=== PATIENT | male | born 1955 | race American Indian/Alaskan Native ===

== ENCOUNTER 2017-08-29 09:21 | Inpatient (IN) | payer MEDICAID ==
[2017-08-29 09:33] VITALS: BMI 32.3
[2017-08-29 10:36] LABS: BASO % 0.6 % (0.0-2.0); EOS # 0.2 K/uL (0.0-0.7); EOS % 2.5 % (0.0-4.0); HEMOGLOBIN 12.8 g/dL (12.0-18.0); LYMPH # 2.4 K/uL (1.0-4.3); LYMPH % 29.9 % (20.0-40.0); MEAN CELL VOLUME 84.6 fl (80.0-94.0); MEAN CORPUSCULAR HEMOGLOBIN 28.5 pg (27.0-31.0); MEAN CORPUSCULAR HGB CONC 33.7 g/dL (33.0-37.0); MEAN PLATELET VOLUME 7.3 fl (7.2-11.7); MONO # 0.7 K/uL (0.0-0.8); NEUT # 4.6 K/uL (1.8-7.0); NRBC % 0.4 % (0.0-0.0); RBC 4.48 Mil/uL (4.40-5.90); RED CELL DISTRIBUTION WIDTH 15.6 % (11.5-14.5); WHITE BLOOD COUNT 7.9 K/uL (4.8-10.8)
[2017-08-29 10:39] LABS: PARTIAL THROMBOPLASTIN TIME 30.3 Seconds (25.6-37.1); PROTHROMBIN TIME 11.6 Seconds (9.8-13.1)
[2017-08-29 10:41] LABS: BLOOD UREA NITROGEN 18 mg/dl (9-20); CALCIUM 9.7 mg/dL (8.4-10.2); GFR AFRICAN-AMERICAN > 60; GFR NON-AFRICAN AMERICAN > 60
--- NOTE | 2017-08-29 10:44 | ED PDOC ---
HPI: Back Time Seen by Provider: 08/29/17 09:40 Chief Complaint (Nursing): Back Pain Chief Complaint (Provider): Back Pain History Per: Patient History/Exam Limitations: no limitations Onset/Duration Of Symptoms: Other (Chronic) Additional Complaint(s): 62 years old male presents to the ED with chronic lower back pain that has been recently worsening with walking. Patient states he has been limping and the pain radiates to his right leg. He admits episodes of numbness and weakness. Patient reports taking Ibuprofen with no improvement of symptoms. He denies numbness in groin, weakness, fever or difficulty of urination. PMD:Tejinder Puckett Past Medical History Reviewed: Historical Data, Nursing Documentation, Vital Signs Vital Signs: Last Vital Signs Temp 98.2 F 08/29/17 09:32 Pulse 79 08/29/17 09:32 Resp 16 08/29/17 09:32 BP 146/100 H 08/29/17 09:32 Pulse Ox 96 08/29/17 09:32 - Medical History PMH: Arthritis, Back Problems, HTN - Surgical History Surgical History: No Surg Hx Denies: Pacemaker - Family History Family History: States: Unknown Family Hx - Social History Current smoker - smoking cessation education provided: Yes Alcohol: None Drugs: Denies - Home Medications Home Medications: Ambulatory Orders Medication Instructions Recorded Valsartan [Diovan] 160 mg PO DAILY 02/14/17 hydroCHLOROthiazide [Microzide] 12.5 mg PO DAILY 02/14/17 - Allergies Allergies/Adverse Reactions: Allergies Allergy/AdvReac Type Severity Reaction Status Date / Time No Known Allergies Allergy Verified 06/25/12 15:19 Review of Systems ROS Statement: Except As Marked, All Systems Reviewed And Found Negative Constitutional: Negative for: Fever Musculoskeletal: Positive for: Back Pain (lower), Leg Pain (right) Neurological: Negative for: Weakness, Numbness (in groin) Physical Exam - Reviewed Nursing Documentation Reviewed: Yes Vital Signs Reviewed: Yes - Physical Exam Appears: Positive for: Non-toxic, No Acute Distress Head Exam: Positive for: ATRAUMATIC, NORMOCEPHALIC Skin: Positive for: Normal Color, Warm Eye Exam: Positive for: Normal appearance, EOMI, PERRL ENT: Positive for: Normal ENT Inspection Neck: Positive for: Normal, Supple Cardiovascular/Chest: Positive for: Regular Rate, Rhythm. Negative for: Murmur Respiratory: Positive for: Normal Breath Sounds. Negative for: Respiratory Distress Gastrointestinal/Abdominal: Positive for: Normal Exam, Soft. Negative for: Tenderness Back: Positive for: Other (mild tenderness of right lower back) Extremity: Positive for: Normal ROM (upper and lower). Negative for: Tenderness , Swelling Neurologic/Psych: Positive for: Alert, Oriented. Negative for: Motor/Sensory Deficits - Laboratory Results Result Diagrams: 08/29/17 10:10 08/29/17 10:10 - ECG O2 Sat by Pulse Oximetry: 96 (RA) Pulse Ox Interpretation: Normal Medical Decision Making Medical Decision Making: Time: 1025 Initial Impression: Chronic back pain with exacerbation. Initial Plan: --BBK Type and Screen --EKG --BMP --CBC --PTT --Prothrombin Time --Chest X-Ray Two Views --Urinalysis According to patient, he had an MRI before and was seen by Dr. Lopez, who recommended patient to have a surgery. Dr. Lopez will be on consultation _ Time: 1055 Chest X-Ray FINDINGS: LUNGS: No active pulmonary disease. PLEURA: No significant pleural effusion identified. No pneumothorax apparent. CARDIOVASCULAR: No radiographic findings to suggest acute or significant cardiovascular disease. OSSEOUS STRUCTURES: No significant abnormalities. Findings related to prior ACDF a new finding compared to previous chest x-ray. VISUALIZED UPPER ABDOMEN: Normal. OTHER FINDINGS: None. IMPRESSION: No active disease. No significant interval change compared to the prior examination(s). Scribe Attestation: Documented by Crista Guzmán, acting as a scribe for Laurent Feng MD. Provider Scribe Attestation: All medical record entries made by the Scribe were at my direction and personally dictated by me. I have reviewed the chart and agree that the record accurately reflects my personal performance of the history, physical exam, medical decision making, and the department course for this patient. I have also personally directed, reviewed, and agree with the discharge instructions and disposition. Disposition - Clinical Impression Clinical Impression: Chronic back pain - Patient ED Disposition Is Patient to be Admitted: Yes Discussed With : Tejinder Puckett Doctor Will See Patient In The: Hospital Counseled Patient/Family Regarding: Studies Performed, Diagnosis - Disposition Disposition Time: 10:00 Condition: FAIR - Pt Status Changed To: Hospital Disposition Of: Inpatient - Admit Certification Admit to Inpatient:: After my assessment, the patient will require hospitalization for at least two midnights. This is because of the severity of symptoms shown, intensity of services needed, and/or the medical risk in this patient being treated as an outpatient. - POA Present On Arrival: None
[2017-08-29 10:53] LABS: SQUAMOUS EPITHIAL < 1 /hpf (0-5); URINE BILIRUBIN NEGATIVE (NEGATIVE); URINE BLOOD NEGATIVE (NEGATIVE); URINE CLARITY SLIGHTY-CLOUDY (Clear); URINE COLOR YELLOW (YELLOW); URINE GLUCOSE (UA) NEG (Normal); URINE LEUKOCYTE ESTERASE NEG Leu/uL (Negative); URINE PROTEIN NEGATIVE (NEGATIVE); URINE UROBILINOGEN 0.2-1.0 mg/dL (0.2-1.0)
--- NOTE | 2017-08-29 10:57 | RAD ---
HISTORY: preop COMPARISON: 02/14/2017 TECHNIQUE: Chest PA and lateral FINDINGS: LUNGS: No active pulmonary disease. PLEURA: No significant pleural effusion identified. No pneumothorax apparent. CARDIOVASCULAR: No radiographic findings to suggest acute or significant cardiovascular disease. OSSEOUS STRUCTURES: No significant abnormalities. Findings related to prior ACDF a new finding compared to previous chest x-ray. VISUALIZED UPPER ABDOMEN: Normal. OTHER FINDINGS: None. IMPRESSION: No active disease. No significant interval change compared to the prior examination(s).
--- NOTE | 2017-08-29 12:36 | CP.PCM.HP ---
<Umesh Antunez - Last Filed: 08/29/17 12:30> History of Present Illness - History of Present Illness History of Present Illness: CC: low back pain HPI: 62 y/o man w/ pmh of HTN, prostate cancer, and osteoarthritis complains of worsening lower back pain. Patient reports back pain for many years. Patient reports his back pain has been worsening. Patient denies saddle paresthesia, bowel/urinary incontinence, or lower extremity weakness. Patient reports failure of outpatient conservative management of medication and physical therapy. Patient denies headaches, chest pain, SOB, abdominal pain, nausea, vomiting, diarrhea, dysuria, or fever. PMD: Dr. Puckett PMH: HTN, Prostate cancer, osteoarthritis meds: see med list Allergies: NKDA PSH: Anterior Cervical Discectomy and Fusion C4-C5, C5-C6 02/2017, cath no stents >5 yrs ago Fam: HTN and cancer in family Soc: Smokes 1/2 pack a day for over 25 years, denies alcohol and drugs ROS: 12 points assessed and negative unless otherwise reported in HPI Present on Admission - Present on Admission Any Indicators Present on Admission: No History of DVT/PE: No History of Uncontrolled Diabetes: No Urinary Catheter: No Decubitus Ulcer Present: No Review of Systems - Review of Systems All systems: reviewed and no additional remarkable complaints except - Constitutional Constitutional: absent: Chills, Fever, Headache - EENT Eyes: absent: Change in Vision - Cardiovascular Cardiovascular: absent: Chest Pain - Respiratory Respiratory: absent: Dyspnea - Gastrointestinal Gastrointestinal: absent: Abdominal Pain, Diarrhea, Nausea, Vomiting - Genitourinary Genitourinary: absent: Dysuria - Integumentary Integumentary: absent: Rash - Neurological Neurological: absent: Headaches Past Patient History - Past Social History Alcohol: None Drugs: Denies - CARDIAC Hx Hypertension: Yes Hx Pacemaker: No - NEUROLOGICAL Hx Neurological Disorder: Yes Hx Paralysis: No Other/Comment: back pain; neck pain with hand tingling and numbness - HEENT Hx HEENT Problems: Yes - HEMATOLOGICAL/ONCOLOGICAL Hx Blood Transfusions: No Hx Blood Transfusion Reaction: No - MUSCULOSKELETAL/RHEUMATOLOGICAL Hx Arthritis: Yes - GENITOURINARY/GYNECOLOGICAL Hx Genitourinary Disorders: Yes Hx Prostate Cancer: Yes Hx Urinary Tract Infection: Yes (from radiation) - PSYCHIATRIC Hx Emotional Abuse: No Hx Physical Abuse: No Hx Substance Use: No - SURGICAL HISTORY Hx Surgeries: Yes Other/Comment: Varicose vein from legs. Cardiac cath - ANESTHESIA Hx Anesthesia: Yes Hx Anesthesia Reactions: No Hx Malignant Hyperthermia: No Meds Allergies/Adverse Reactions: Allergies Allergy/AdvReac Type Severity Reaction Status Date / Time No Known Allergies Allergy Verified 06/25/12 15:19 Physical Exam - Constitutional Appears: Non-toxic, No Acute Distress - Head Exam Head Exam: ATRAUMATIC, NORMAL INSPECTION, NORMOCEPHALIC - Eye Exam Eye Exam: Normal appearance - ENT Exam ENT Exam: Mucous Membranes Moist - Neck Exam Neck exam: Positive for: Full Rom. Negative for: Tenderness - Respiratory Exam Respiratory Exam: Clear to Auscultation Bilateral. absent: Accessory Muscle Use , Decreased Breath Sounds, Rales, Rhonchi, Wheezes, Respiratory Distress - Cardiovascular Exam Cardiovascular Exam: REGULAR RHYTHM. absent: Tachycardia - GI/Abdominal Exam GI & Abdominal Exam: Normal Bowel Sounds, Soft. absent: Distended, Tenderness - Extremities Exam Extremities exam: Negative for: calf tenderness, pedal edema, tenderness - Neurological Exam Neurological exam: Alert, Normal Gait (w/ can assist device), Oriented x3 Results - Vital Signs Recent Vital Signs: Last Vital Signs Temp 98.2 F 08/29/17 09:32 Pulse 79 08/29/17 09:32 Resp 16 08/29/17 09:32 BP 146/100 H 08/29/17 09:32 Pulse Ox 96 08/29/17 12:20 - Labs Result Diagrams: 08/29/17 10:10 08/29/17 10:10 Labs: Laboratory Results - last 24 hr 08/29/17 08/29/17 08/29/17 10:10 10:10 10:10 WBC 7.9 RBC 4.48 Hgb 12.8 Hct 38.0 MCV 84.6 MCH 28.5 MCHC 33.7 RDW 15.6 H Plt Count 337 MPV 7.3 Neut % (Auto) 58.0 Lymph % (Auto) 29.9 [place] % (Auto) 9.0 Eos % (Auto) 2.5 Baso % (Auto) 0.6 Neut # (Auto) 4.6 Lymph # (Auto) 2.4 [place] # (Auto) 0.7 Eos # (Auto) 0.2 Baso # (Auto) 0.0 PT 11.6 INR 1.0 APTT 30.3 Sodium 143 Potassium 3.6 Chloride 102 Carbon Dioxide 28 Anion Gap 17 BUN 18 Creatinine 0.9 Est GFR ( Amer) > 60 Est GFR (Non-Af Amer) > 60 Random Glucose 92 Calcium 9.7 Urine Color Urine Clarity Urine pH Ur Specific [place] Urine Protein Urine Glucose (UA) Urine Ketones Urine Blood Urine Nitrate Urine Bilirubin Urine Urobilinogen Ur Leukocyte Esterase Urine RBC (Auto) Urine Microscopic WBC Ur Squamous Epith Cells Blood Type Antibody Screen BBK History Checked 08/29/17 08/29/17 10:10 10:45 WBC RBC Hgb Hct MCV MCH MCHC RDW Plt Count MPV Neut % (Auto) Lymph % (Auto) [place] % (Auto) Eos % (Auto) Baso % (Auto) Neut # (Auto) Lymph # (Auto) [place] # (Auto) Eos # (Auto) Baso # (Auto) PT INR APTT Sodium Potassium Chloride Carbon Dioxide Anion Gap BUN Creatinine Est GFR ( Amer) Est GFR (Non-Af Amer) Random Glucose Calcium Urine Color Yellow Urine Clarity Slighty-cloudy Urine pH 6.0 Ur Specific [place] 1.018 Urine Protein Negative Urine Glucose (UA) Neg Urine Ketones Negative Urine Blood Negative Urine Nitrate Negative Urine Bilirubin Negative Urine Urobilinogen 0.2-1.0 Ur Leukocyte Esterase Neg Urine RBC (Auto) 2 Urine Microscopic WBC < 1 Ur Squamous Epith Cells < 1 Blood Type A POSITIVE Antibody Screen Negative BBK History Checked Patient has bt Assessment & Plan (1) Chronic back pain Status: Acute (2) Intractable back pain Status: Acute (3) HTN (hypertension) Status: Chronic - Assessment and Plan (Free Text) Plan: c/w hoem medications for BP control afebrile, non-tachycardic, BP elevated 146/100 mg Hg neurosurgery consult ordered CBC: 7.9>12.8/38.0<337 BMP: 143/3.6, 102/28, 18/0.9, glucose 92 PT: 11.6 INR: 1.0 aPTT: 30.3 UA: WNL CXR: no active disease f/u EKG NPO after midnight for surgery tomorrow prophylactic measures: DVT SCDs monitor for acute changes admit to [facility] <Tejinder Puckett - Last Filed: 09/03/17 17:47> Results - Vital Signs Recent Vital Signs: Last Vital Signs Temp 98.4 F 09/03/17 15:46 Pulse 66 09/03/17 15:46 Resp 20 09/03/17 15:46 BP 109/72 09/03/17 15:46 Pulse Ox 97 09/03/17 15:46 - Labs Result Diagrams: 09/01/17 06:00 09/01/17 06:00 Assessment & Plan - Assessment and Plan (Free Text) Plan: I was present during evaluation and discussed with Dr Antunez re plans of care and tx. Tejinder Puckett M.D.
--- NOTE | 2017-08-29 15:50 | CP.PCM.CON ---
History of Present Illness - History of Present Illness History of Present Illness: Neurosurgery consult Patient is a 62 y/o male with PMH of HTN and prostate CA who presented to the [facility] ER with c/o severe lower back pain. Dr. Lopez was consulted for neurosurgical evaluation. He denies any recent history of injury or trauma. He has had lower back pain for many years but states that the pain has progressively worsened over the past few weeks. The pain has severely limited his daily functions including walking, sitting and climbing stairs. The pain is sharp, stabbing and right sided. The pain radiates down the RLE with associated occasional numbness and tingling. He has failed conservative management with oral meds and physical therapy, as well as steroid injections. He denies any bowel/bladder dysfunction or saddle paresthesias. He also denies CP/SOB/N/V/D/[place]/fever/dysuria/melena. Review of Systems - Review of Systems All systems: reviewed and no additional remarkable complaints except Review of Systems: as per HPI Past Patient History - Past Medical History & Family History Past Medical History?: Yes Past Family History: Reviewed and not pertinent - Past Social History Smoking Status: Light Smoker < 10 Cigarettes Daily Alcohol: None Drugs: Denies - CARDIAC Hx Hypertension: Yes Hx Pacemaker: No - PULMONARY Hx Respiratory Disorders: No - NEUROLOGICAL Hx Neurological Disorder: Yes Hx Paralysis: No Other/Comment: back pain; neck pain with hand tingling and numbness - HEENT Hx HEENT Problems: Yes - HEMATOLOGICAL/ONCOLOGICAL Hx Blood Transfusions: No Hx Blood Transfusion Reaction: No - MUSCULOSKELETAL/RHEUMATOLOGICAL Hx Arthritis: Yes - GASTROINTESTINAL Hx Gastrointestinal Disorders: No - GENITOURINARY/GYNECOLOGICAL Hx Genitourinary Disorders: Yes Hx Prostate Cancer: Yes Hx Urinary Tract Infection: Yes (from radiation) - PSYCHIATRIC Hx Emotional Abuse: No Hx Physical Abuse: No Hx Substance Use: No - SURGICAL HISTORY Hx Surgeries: Yes Other/Comment: Varicose vein from legs. Cardiac cath. Anterior Cervical Discectomy and Fusion C4-C5, C5-C6 - ANESTHESIA Hx Anesthesia: Yes Hx Anesthesia Reactions: No Hx Malignant Hyperthermia: No Meds Allergies/Adverse Reactions: Allergies Allergy/AdvReac Type Severity Reaction Status Date / Time No Known Allergies Allergy Verified 06/25/12 15:19 - Medications Medications: Current Medications Acetaminophen (Tylenol 325mg Tab) 650 mg PO Q6 PRN PRN Reason: Pain, Mild (1-3) Hydrochlorothiazide (Microzide) 12.5 mg PO DAILY [facility] Ibuprofen (Motrin Tab) 600 mg PO Q6H PRN PRN Reason: Pain, moderate (4-7) Oxycodone/Acetaminophen (Percocet 5/325 Mg Tab) 1 tab PO Q4 PRN PRN Reason: Pain, severe (8-10) Stop: 09/01/17 12:27 Valsartan (Diovan) 160 mg PO DAILY [facility] Physical Exam - Constitutional Appears: No Acute Distress - Head Exam Head Exam: ATRAUMATIC - Eye Exam Eye Exam: EOMI, Normal appearance, PERRL - ENT Exam ENT Exam: Mucous Membranes Moist - Neck Exam Additional comments: Old ACDF scar - Respiratory Exam Respiratory Exam: Clear to Auscultation Bilateral, NORMAL BREATHING PATTERN - Cardiovascular Exam Cardiovascular Exam: REGULAR RHYTHM - GI/Abdominal Exam GI & Abdominal Exam: Normal Bowel Sounds, Soft - Back Exam Additional comments: NSX: + lumbar vertebral tenderness, +R paraspinal tenderness, no lesions all CN intact sensation intact SP/DP/TN 4/5 strength RLE, 5/5 LLE distal pulses intact neg SLR b/l, neg babinski, neg homans - Neurological Exam Neurological exam: Alert, Oriented x3 - Psychiatric Exam Psychiatric exam: Normal Affect, Normal Mood - Skin Skin Exam: Normal Color, Warm Results - Vital Signs Recent Vital Signs: Last Vital Signs Temp 98.0 F 08/29/17 15:36 Pulse 72 08/29/17 15:36 Resp 16 08/29/17 15:36 BP 132/72 08/29/17 15:36 Pulse Ox 96 08/29/17 12:20 - Labs Result Diagrams: 08/29/17 10:10 08/29/17 10:10 Labs: Laboratory Results - last 24 hr 08/29/17 08/29/17 08/29/17 10:10 10:10 10:10 WBC 7.9 RBC 4.48 Hgb 12.8 Hct 38.0 MCV 84.6 MCH 28.5 MCHC 33.7 RDW 15.6 H Plt Count 337 MPV 7.3 Neut % (Auto) 58.0 Lymph % (Auto) 29.9 [place] % (Auto) 9.0 Eos % (Auto) 2.5 Baso % (Auto) 0.6 Neut # (Auto) 4.6 Lymph # (Auto) 2.4 [place] # (Auto) 0.7 Eos # (Auto) 0.2 Baso # (Auto) 0.0 PT 11.6 INR 1.0 APTT 30.3 Sodium 143 Potassium 3.6 Chloride 102 Carbon Dioxide 28 Anion Gap 17 BUN 18 Creatinine 0.9 Est GFR ( Amer) > 60 Est GFR (Non-Af Amer) > 60 Random Glucose 92 Calcium 9.7 Urine Color Urine Clarity Urine pH Ur Specific [place] Urine Protein Urine Glucose (UA) Urine Ketones Urine Blood Urine Nitrate Urine Bilirubin Urine Urobilinogen Ur Leukocyte Esterase Urine RBC (Auto) Urine Microscopic WBC Ur Squamous Epith Cells Blood Type Antibody Screen BBK History Checked 08/29/17 08/29/17 10:10 10:45 WBC RBC Hgb Hct MCV MCH MCHC RDW Plt Count MPV Neut % (Auto) Lymph % (Auto) [place] % (Auto) Eos % (Auto) Baso % (Auto) Neut # (Auto) Lymph # (Auto) [place] # (Auto) Eos # (Auto) Baso # (Auto) PT INR APTT Sodium Potassium Chloride Carbon Dioxide Anion Gap BUN Creatinine Est GFR ( Amer) Est GFR (Non-Af Amer) Random Glucose Calcium Urine Color Yellow Urine Clarity Slighty-cloudy Urine pH 6.0 Ur Specific [place] 1.018 Urine Protein Negative Urine Glucose (UA) Neg Urine Ketones Negative Urine Blood Negative Urine Nitrate Negative Urine Bilirubin Negative Urine Urobilinogen 0.2-1.0 Ur Leukocyte Esterase Neg Urine RBC (Auto) 2 Urine Microscopic WBC < 1 Ur Squamous Epith Cells < 1 Blood Type A POSITIVE Antibody Screen Negative BBK History Checked Patient has bt Assessment & Plan (1) Intractable back pain Assessment and Plan: -Dr. Lopez proposes lumbar laminectomy in OR for carlos AM -Patient was explained risks/benefits/adv/disadv of procedure. Pt expresses understanding and agrees to proceed -NPO pMN -hold Dvt. ppx -above d/w Dr. Lopez in agreement Status: Acute
[2017-08-30] MEDS ORDERED: Propofol 10 mg/ml Inj (20 ML) ONE ×2 (07:38→09:18)
[2017-08-30] MEDS ORDERED: Midazolam 2 MG/2 ML VIAL ONE (07:39)
[2017-08-30] MEDS ORDERED: Succinylcholine 200 mg/10 ml Inj IV ONE (07:39)
[2017-08-30] MEDS ORDERED: Phenylephrine 10 mg/ml Inj ONE (07:39)
[2017-08-30] MEDS ORDERED: Lidocaine 4% (Laryng-O-Jet) Kit MM ONE (07:39)
[2017-08-30] MEDS ORDERED: Rocuronium 10 mg/ml (5 ml) ONE (07:39)
[2017-08-30] MEDS ORDERED: Bupivacaine HCl 0.25% PF (30 ml) Inj ONE (07:48)
[2017-08-30] MEDS ORDERED: APROTININ/FIBRINOGEN(TISSEEL) ONE ×2 (07:49→07:53)
[2017-08-30] MEDS ORDERED: Thrombin Topical 5,000 Int Units Spray Kit ONE (07:49)
[2017-08-30] MEDS ORDERED: Absorbable Gelatin Sponge Size 12-7 ONE (07:49)
[2017-08-30] MEDS ORDERED: Bacitracin Ointment 30 GM TUBE ONE (07:49)
--- NOTE | 2017-08-30 08:26 | CP.PCM.PN ---
<Umesh Antunez - Last Filed: 08/30/17 11:52> Subjective - Date & Time of Evaluation Date of Evaluation: 08/30/17 Time of Evaluation: 11:52 - Subjective Subjective: Patient seen and examined in PACU. Patient is s/p L2-L5 lumbar laminectomy and fusion. Patient reports pain at surgical site. Patient has 1 TUCKER drain containing serosanguinous fluid. The patient denies headaches, chest pain, SOB , abdominal pain, nausea, vomiting, or fever. Objective - Vital Signs/Intake and Output Vital Signs (last 24 hours): Temp Pulse Resp BP Pulse Ox 98.3 F 68 20 120/74 99 08/30/17 00:46 08/30/17 00:46 08/30/17 00:46 08/30/17 00:46 08/30/17 00:46 - Medications Medications: Current Medications Acetaminophen (Tylenol 325mg Tab) 650 mg PO Q6 PRN PRN Reason: Pain, Mild (1-3) Hydrochlorothiazide (Microzide) 12.5 mg PO DAILY [facility] Last Admin: 08/30/17 08:22 Dose: Not Given Ibuprofen (Motrin Tab) 600 mg PO Q6H PRN PRN Reason: Pain, moderate (4-7) Oxycodone/Acetaminophen (Percocet 5/325 Mg Tab) 1 tab PO Q4 PRN PRN Reason: Pain, severe (8-10) Stop: 09/01/17 12:27 Valsartan (Diovan) 160 mg PO DAILY [facility] Last Admin: 08/30/17 08:22 Dose: Not Given - Labs Labs: 08/29/17 10:10 08/29/17 10:10 PT 11.6 Seconds (9.8-13.1) 08/29/17 10:10 INR 1.0 (0.9-1.2) 08/29/17 10:10 APTT 30.3 Seconds (25.6-37.1) 08/29/17 10:10 - Constitutional Appears: Non-toxic, No Acute Distress - Head Exam Head Exam: ATRAUMATIC, NORMAL INSPECTION, NORMOCEPHALIC - Eye Exam Eye Exam: Normal appearance - ENT Exam ENT Exam: Mucous Membranes Moist - Neck Exam Neck Exam: Full ROM. absent: Tenderness - Respiratory Exam Respiratory Exam: Clear to Ausculation Bilateral. absent: Accessory Muscle Use , Decreased Breath Sounds, Rales, Rhonchi, Wheezes, Respiratory Distress - GI/Abdominal Exam GI & Abdominal Exam: Soft, Normal Bowel Sounds. absent: Distended, Tenderness - Extremities Exam Extremities Exam: absent: Calf Tenderness, Pedal Edema, Tenderness - Back Exam Additional comments: 1 TUCKER drain - Neurological Exam Neurological Exam: Alert, Awake, Oriented x3 - Skin Skin Exam: Dry, Intact, Normal Color, Warm Assessment and Plan (1) Chronic back pain Status: Acute (2) Intractable back pain Status: Acute (3) HTN (hypertension) Status: Chronic - Assessment and Plan (Free Text) Plan: c/w present management, s/p lumbar laminectomy and fusion L2-L3, L3-L4, L4-L5 c/w home medications for BP control afebrile, non-tachycardic, normotensive neurosurgery recommendations appreciated IVF LR @125 mL/h start decadron taper, 4 mg IV Q12h pain management: tylenol 650 mg PO Q6h prn, motrin 600 mg PO Q6h prn, percocet 1 tab PO Q4h prn, percocet 2 tab PO Q4h prn, morphine 2mg IV Q4h prn colace 100 mg PO BID prophylactic measures: DVT SCDs f/u CBC and BMP encourage incentive spirometer monitor for acute changes <Tejinder Puckett - Last Filed: 09/03/17 17:48> Objective - Vital Signs/Intake and Output Vital Signs (last 24 hours): Temp Pulse Resp BP Pulse Ox 98.4 F 66 20 109/72 97 09/03/17 15:46 09/03/17 15:46 09/03/17 15:46 09/03/17 15:46 09/03/17 15:46 Intake and Output: 09/03/17 09/03/17 06:59 18:59 Output Total 680 Balance -680 - Medications Medications: Current Medications Acetaminophen (Tylenol 325mg Tab) 650 mg PO Q6 PRN PRN Reason: Pain, Mild (1-3) Bisacodyl (Dulcolax) 5 mg PO HS PRN PRN Reason: Constipation Dexamethasone (Decadron Inj) 1 mg IVP Q12 [facility] Last Admin: 09/03/17 08:47 Dose: 1 mg Docusate Sodium (Colace) 100 mg PO BID [facility] Last Admin: 09/03/17 16:54 Dose: 100 mg Hydrochlorothiazide (Microzide) 12.5 mg PO DAILY [facility] Last Admin: 09/03/17 08:48 Dose: 12.5 mg Ibuprofen (Motrin Tab) 600 mg PO Q6H PRN PRN Reason: Pain, moderate (4-7) Last Admin: 09/01/17 09:43 Dose: 600 mg Ondansetron HCl (Zofran Inj) 4 mg IVP ONCE PRN PRN Reason: Nausea/Vomiting Last Admin: 08/30/17 15:39 Dose: 4 mg Oxycodone/Acetaminophen (Percocet 5/325 Mg Tab) 2 tab PO Q4 PRN PRN Reason: Pain, severe (8-10) Stop: 09/05/17 18:25 Last Admin: 09/03/17 12:49 Dose: 2 tab Valsartan (Diovan) 160 mg PO DAILY [facility] Last Admin: 09/03/17 08:48 Dose: 160 mg - Labs Labs: 09/01/17 06:00 09/01/17 06:00 PT 11.6 Seconds (9.8-13.1) 08/29/17 10:10 INR 1.0 (0.9-1.2) 08/29/17 10:10 APTT 30.3 Seconds (25.6-37.1) 08/29/17 10:10 Assessment and Plan - Assessment and Plan (Free Text) Plan: I was present during evaluation and discussed with Dr Antunez re plans of care and tx. Tejinder Puckett M.D.
[2017-08-30] MEDS ORDERED: Lactated Ringer's 1,000 ML IV ONE ×2 (08:40→12:40)
[2017-08-30] MEDS ORDERED: Absorbable Gelatin Sponge Size 100 ONE (08:42)
[2017-08-30] MEDS ORDERED: ePHEDrine 50 mg/ml Inj ONE (09:00)
[2017-08-30] MEDS ORDERED: Dexamethasone 4 mg/1 ml ONE (09:18)
[2017-08-30] MEDS ORDERED: Lactated Ringer's 500 ML IV ONE (09:39)
[2017-08-30] MEDS ORDERED: HEMOSTATIC MATRIX 10 ML DIS.NEEDLE TOP ONE (10:07)
--- NOTE | 2017-08-30 10:52 | CARD ---
APPROVED REPORT EKG Measurement Heart [id number] <Conclusion> Normal sinus rhythm Minimal voltage criteria for LVH, may be normal variant Borderline ECG
--- NOTE | 2017-08-30 11:50 | PCM.SURG1 ---
Surgeon's Initial Post Op Note - Surgeon's Notes Surgeon: Valente Lopez MD Wedding Consultant: Juanjo Betancourt PA-C Type of Anesthesia: General Endo Anesthesia Administered By: Dong Cook MD Pre-Operative Diagnosis: Lumbar HNP with radiculopathy Operative Findings: see complete operative report Post-Operative Diagnosis: L2-3, L3-4, L4-5 HNP and spondylosis Operation Performed: L2-5 lumbar laminotomy with fusion Specimen/Specimens Removed: none Estimated Blood Loss: EBL {In ML}: 300 Blood Products Given: N/A Drains Used: Edu Mejia (x1) Post-Op Condition: Good Date of Surgery/Procedure: 08/30/17 Time of Surgery/Procedure: 09:00
[2017-08-30] MEDS: HYDROmorphone 0.5 mg/0.5 ml ISec IVP PRN ×3 (11:55→12:26)
[2017-08-30] MEDS ORDERED: Dexamethasone 4 MG in Sodium Chloride 0.9% 50 ML IVPB SCH (12:00)
--- NOTE | 2017-08-30 12:38 | RAD ---
PROCEDURE: Intraoperative Fluoroscopy. HISTORY: LUMBAR LAMINECTOMY FINDINGS: Fluoroscopic assistance was provided. 9.6 seconds fluoroscopy time utilized during this procedure. Radiation dose = 4.03 mGy-cm. Please refer to the operative report
[2017-08-30] MEDS: Dexamethasone 4 mg/1 ml IVP SCH ×2 (13:22→21:45)
[2017-08-30] MEDS: Oxycodone/Acetaminophen 5/325 mg Tab PO PRN (15:39)
--- NOTE | 2017-08-30 16:15 | OP ---
PROCEDURE DATE: 08/30/2017 PREOPERATIVE DIAGNOSIS: Lumbar spondylosis. POSTOPERATIVE DIAGNOSIS: Lumbar spondylosis. PROCEDURE: L2 to L5 lumbar laminectomy, medial facetectomy and decompression of the nerve roots, L2 to L5 posterolateral fusion. SURGEON: Valente Lopez MD AGRICULTURAL PRODUCE WASHER: Juanjo Betancourt PA-C DESCRIPTION OF PROCEDURE: The patient was brought to the operating room, anesthetized with general endotracheal anesthesia, placed in a prone position on a Edu table. Care was taken to protect all the pressure points. Back of the lumbar area was thoroughly prepped and draped in the same sterile manner after marking the skin incisions for lumbar laminectomy. After prepping and draping the area, skin has been incised. Bleeding skins have been controlled with bipolar business continuity manager. After using a Bovie business continuity manager, the paraspinal muscles had been detached from the attachments of spinous process and lamina of L2 to L5. After identification of levels by using a Leksell rongeur, the spinous process of 2, 3, 4, and 5 have been removed by using high-speed drill, the lamina of 2, 3, 4, and 5 on the medial part of the facets have been drilled to actual thickness. By using fine Kerrison punch, thinned out the lamina, medial part of the facets and ligamentum flavum have been removed, decompressing this area. After that, the lateral aspect of the facet joint decorticated. Demineralized bone along with the bone that has been removed from the spinous process have been placed in the area achieving a posterolateral fusion. After that hemostasis was best achieved. Edu drain was placed in the wound, brought out through a separate stab neck skin incision. Muscles and fascia were closed with 1 Vicryl, subcutaneous tissue with 3 Vicryl, and skin had been intradermal 3 Vicryl stitches. The patient tolerated the procedure and after the procedure, mobilized to the recovery room in stabilized condition. Valente Lopez MD
[2017-08-30] MEDS: ceFAZolin 2 GM in Sodium Chloride 0.9% 100 ML IVPB SCH (17:17)
[2017-08-30] MEDS: Lactated Ringer's 1,000 ML IV SCH (20:05)
[2017-08-31] MEDS: ceFAZolin 2 GM in Sodium Chloride 0.9% 100 ML IVPB SCH ×3 (00:52→16:52)
[2017-08-31 06:41] LABS: HEMOGLOBIN 11.6 g/dL (12.0-18.0); MEAN CELL VOLUME 84.7 fl (80.0-94.0); MEAN CORPUSCULAR HEMOGLOBIN 28.7 pg (27.0-31.0); MEAN CORPUSCULAR HGB CONC 33.9 g/dL (33.0-37.0); RBC 4.03 Mil/uL (4.40-5.90); RED CELL DISTRIBUTION WIDTH 15.4 % (11.5-14.5); WHITE BLOOD COUNT 9.4 K/uL (4.8-10.8)
[2017-08-31 07:43] LABS: BLOOD UREA NITROGEN 11 mg/dl (9-20); CALCIUM 8.9 mg/dL (8.4-10.2); GFR AFRICAN-AMERICAN > 60; GFR NON-AFRICAN AMERICAN > 60
[2017-08-31] MEDS: Oxycodone/Acetaminophen 5/325 mg Tab PO PRN ×2 (07:58→13:47)
--- NOTE | 2017-08-31 08:22 | CP.PCM.PN ---
<Umesh Antunez - Last Filed: 08/31/17 12:06> Subjective - Date & Time of Evaluation Date of Evaluation: 08/31/17 Time of Evaluation: 11:00 - Subjective Subjective: Patient seen and examined this morning at bedside w/ Dr. Puckett. Patient is s/ p L2-L5 lumbar laminectomy and fusion POD#1. Patient reports pain at surgical site. Patient has 1 TUCKER drain containing moderate amount of sanguinous fluid. The patient tolerated physical therapy. The patient denies headaches, chest pain, SOB, abdominal pain, nausea, vomiting, or fever. Objective - Vital Signs/Intake and Output Vital Signs (last 24 hours): Temp Pulse Resp BP Pulse Ox 98.5 F 67 18 128/82 98 08/31/17 08:00 08/31/17 08:00 08/31/17 08:00 08/31/17 08:00 08/31/17 08:00 Intake and Output: 08/31/17 08/31/17 06:59 18:59 Intake Total 1840 Output Total 95 Balance 1745 - Medications Medications: Current Medications Acetaminophen (Tylenol 325mg Tab) 650 mg PO Q6 PRN PRN Reason: Pain, Mild (1-3) Dexamethasone (Decadron Inj) 4 mg IVP Q12 [facility] Last Admin: 08/30/17 21:45 Dose: 4 mg Docusate Sodium (Colace) 100 mg PO BID [facility] Last Admin: 08/30/17 22:11 Dose: 100 mg Hydrochlorothiazide (Microzide) 12.5 mg PO DAILY [facility] Last Admin: 08/30/17 08:22 Dose: Not Given Cefazolin Sodium 2 gm/ Sodium (Chloride) 100 mls @ 100 mls/hr IVPB Q8 [facility] PRN Reason: Protocol Stop: 08/31/17 17:59 Last Admin: 08/31/17 00:52 Dose: 100 mls/hr Lactated Ringer's (Lactated Ringer's) 1,000 mls @ 125 mls/hr IV .Q8H [facility] Last Admin: 08/30/17 20:05 Dose: 125 mls/hr Ibuprofen (Motrin Tab) 600 mg PO Q6H PRN PRN Reason: Pain, moderate (4-7) Morphine Sulfate (Morphine) 2 mg IVP Q4 PRN PRN Reason: Pain, severe (8-10) Ondansetron HCl (Zofran Inj) 4 mg IVP ONCE PRN PRN Reason: Nausea/Vomiting Last Admin: 08/30/17 15:39 Dose: 4 mg Oxycodone/Acetaminophen (Percocet 5/325 Mg Tab) 1 tab PO Q4 PRN PRN Reason: Pain, severe (8-10) Stop: 09/01/17 12:27 Last Admin: 08/31/17 07:58 Dose: 1 tab Oxycodone/Acetaminophen (Percocet 5/325 Mg Tab) 2 tab PO Q4 PRN PRN Reason: Pain, severe (8-10) Stop: 09/02/17 11:37 Last Admin: 08/30/17 15:39 Dose: 2 tab Valsartan (Diovan) 160 mg PO DAILY [facility] Last Admin: 08/30/17 08:22 Dose: Not Given - Labs Labs: 08/31/17 06:05 08/31/17 06:05 PT 11.6 Seconds (9.8-13.1) 08/29/17 10:10 INR 1.0 (0.9-1.2) 08/29/17 10:10 APTT 30.3 Seconds (25.6-37.1) 08/29/17 10:10 - Constitutional Appears: Non-toxic, No Acute Distress - Head Exam Head Exam: ATRAUMATIC, NORMAL INSPECTION, NORMOCEPHALIC - Eye Exam Eye Exam: Normal appearance - ENT Exam ENT Exam: Mucous Membranes Moist - Neck Exam Neck Exam: Full ROM. absent: Tenderness - Respiratory Exam Respiratory Exam: Clear to Ausculation Bilateral. absent: Accessory Muscle Use , Decreased Breath Sounds, Rales, Rhonchi, Wheezes, Respiratory Distress - Cardiovascular Exam Cardiovascular Exam: REGULAR RHYTHM. absent: Tachycardia - GI/Abdominal Exam GI & Abdominal Exam: Soft, Normal Bowel Sounds. absent: Distended, Tenderness - Back Exam Additional comments: dressing c/d/i, 1 TUCKER drain containing moderate amount of sanguinous fluid, 95 cc - Neurological Exam Neurological Exam: Alert, Awake, Normal Gait, Oriented x3 - Skin Skin Exam: Dry, Intact, Normal Color, Warm Assessment and Plan (1) Chronic back pain Status: Acute (2) Intractable back pain Status: Acute (3) HTN (hypertension) Status: Chronic - Assessment and Plan (Free Text) Plan: c/w present management, s/p lumbar laminectomy and fusion L2-L3, L3-L4, L4-L5 POD#1 c/w home medications for BP control afebrile, non-tachycardic, normotensive neurosurgery recommendations appreciated CBC: 9.4>11.6/34,2<326 BMP: 139/3.7, 102/27, 11/0.9, glucose 135 decadron taper, 2 mg IV Q12h pain management: tylenol 650 mg PO Q6h prn, motrin 600 mg PO Q6h prn, percocet 1 tab PO Q4h prn, percocet 2 tab PO Q4h prn, morphine 2mg IV Q4h prn colace 100 mg PO BID prophylactic measures: DVT SCDs encourage incentive spirometer f/u CBC and BMP monitor for acute changes <Tejinder Puckett - Last Filed: 09/03/17 17:49> Objective - Vital Signs/Intake and Output Vital Signs (last 24 hours): Temp Pulse Resp BP Pulse Ox 98.4 F 66 20 109/72 97 09/03/17 15:46 09/03/17 15:46 09/03/17 15:46 09/03/17 15:46 09/03/17 15:46 Intake and Output: 09/03/17 09/03/17 06:59 18:59 Output Total 680 Balance -680 - Medications Medications: Current Medications Acetaminophen (Tylenol 325mg Tab) 650 mg PO Q6 PRN PRN Reason: Pain, Mild (1-3) Bisacodyl (Dulcolax) 5 mg PO HS PRN PRN Reason: Constipation Dexamethasone (Decadron Inj) 1 mg IVP Q12 [facility] Last Admin: 09/03/17 08:47 Dose: 1 mg Docusate Sodium (Colace) 100 mg PO BID [facility] Last Admin: 09/03/17 16:54 Dose: 100 mg Hydrochlorothiazide (Microzide) 12.5 mg PO DAILY [facility] Last Admin: 09/03/17 08:48 Dose: 12.5 mg Ibuprofen (Motrin Tab) 600 mg PO Q6H PRN PRN Reason: Pain, moderate (4-7) Last Admin: 09/01/17 09:43 Dose: 600 mg Ondansetron HCl (Zofran Inj) 4 mg IVP ONCE PRN PRN Reason: Nausea/Vomiting Last Admin: 08/30/17 15:39 Dose: 4 mg Oxycodone/Acetaminophen (Percocet 5/325 Mg Tab) 2 tab PO Q4 PRN PRN Reason: Pain, severe (8-10) Stop: 09/05/17 18:25 Last Admin: 09/03/17 12:49 Dose: 2 tab Valsartan (Diovan) 160 mg PO DAILY [facility] Last Admin: 09/03/17 08:48 Dose: 160 mg - Labs Labs: 09/01/17 06:00 09/01/17 06:00 PT 11.6 Seconds (9.8-13.1) 08/29/17 10:10 INR 1.0 (0.9-1.2) 08/29/17 10:10 APTT 30.3 Seconds (25.6-37.1) 08/29/17 10:10 Assessment and Plan - Assessment and Plan (Free Text) Plan: I was present during evaluation and discussed with Dr Antunez re plans of care and mgt. Tejinder Puckett M.D.
--- NOTE | 2017-08-31 09:09 | CP.PCM.PN ---
Subjective - Date & Time of Evaluation Date of Evaluation: 08/31/17 Time of Evaluation: 09:09 - Subjective Subjective: Patient seen and examined at bedside comfortable. Pain well controlled. Alexa diet. No acute events overnight. Objective - Vital Signs/Intake and Output Vital Signs (last 24 hours): Temp Pulse Resp BP Pulse Ox 98.5 F 67 18 128/82 98 08/31/17 08:00 08/31/17 08:00 08/31/17 08:00 08/31/17 08:00 08/31/17 08:00 Intake and Output: 08/31/17 08/31/17 06:59 18:59 Intake Total 1840 Output Total 95 Balance 1745 - Medications Medications: Current Medications Acetaminophen (Tylenol 325mg Tab) 650 mg PO Q6 PRN PRN Reason: Pain, Mild (1-3) Dexamethasone (Decadron Inj) 4 mg IVP Q12 [facility] Last Admin: 08/30/17 21:45 Dose: 4 mg Docusate Sodium (Colace) 100 mg PO BID [facility] Last Admin: 08/30/17 22:11 Dose: 100 mg Hydrochlorothiazide (Microzide) 12.5 mg PO DAILY [facility] Last Admin: 08/30/17 08:22 Dose: Not Given Cefazolin Sodium 2 gm/ Sodium (Chloride) 100 mls @ 100 mls/hr IVPB Q8 [facility] PRN Reason: Protocol Stop: 08/31/17 17:59 Last Admin: 08/31/17 00:52 Dose: 100 mls/hr Lactated Ringer's (Lactated Ringer's) 1,000 mls @ 125 mls/hr IV .Q8H [facility] Last Admin: 08/30/17 20:05 Dose: 125 mls/hr Ibuprofen (Motrin Tab) 600 mg PO Q6H PRN PRN Reason: Pain, moderate (4-7) Morphine Sulfate (Morphine) 2 mg IVP Q4 PRN PRN Reason: Pain, severe (8-10) Ondansetron HCl (Zofran Inj) 4 mg IVP ONCE PRN PRN Reason: Nausea/Vomiting Last Admin: 08/30/17 15:39 Dose: 4 mg Oxycodone/Acetaminophen (Percocet 5/325 Mg Tab) 1 tab PO Q4 PRN PRN Reason: Pain, severe (8-10) Stop: 09/01/17 12:27 Last Admin: 08/31/17 07:58 Dose: 1 tab Oxycodone/Acetaminophen (Percocet 5/325 Mg Tab) 2 tab PO Q4 PRN PRN Reason: Pain, severe (8-10) Stop: 09/02/17 11:37 Last Admin: 08/30/17 15:39 Dose: 2 tab Valsartan (Diovan) 160 mg PO DAILY [facility] Last Admin: 08/30/17 08:22 Dose: Not Given - Labs Labs: 08/31/17 06:05 08/31/17 06:05 PT 11.6 Seconds (9.8-13.1) 08/29/17 10:10 INR 1.0 (0.9-1.2) 08/29/17 10:10 APTT 30.3 Seconds (25.6-37.1) 08/29/17 10:10 - Extremities Exam Additional comments: Dressings with scant sangiunous drainage surrounding drain site. TUCKER drains intact with mild sangiunous drainage. + tenderness. abd binder intact sensation intact SP/DP/TN motor intact EHL/FHL/TA/G pedal pulses intact neg babinski b/l Assessment and Plan (1) Intractable back pain Assessment & Plan: POD#1 s/p L2-5 laminotomy with fusion -pain control -monitor drain output, may remove carlos AM -PT/OT WBAT -keep abd binder on -d/c planning -above d/w Dr. Lopez in agreement Status: Acute
[2017-08-31] MEDS: Dexamethasone 4 mg/1 ml IVP SCH ×2 (09:36→22:49)
[2017-08-31] MEDS: Lactated Ringer's 1,000 ML IV SCH (11:18)
[2017-08-31] MEDS ORDERED: Dexamethasone 2 MG in Sodium Chloride 0.9% 50 ML IVPB SCH (21:00)
[2017-09-01] MEDS: Oxycodone/Acetaminophen 5/325 mg Tab PO PRN ×3 (00:42→23:47)
[2017-09-01 06:24] LABS: MEAN CELL VOLUME 85.7 fl (80.0-94.0); MEAN CORPUSCULAR HEMOGLOBIN 28.5 pg (27.0-31.0); MEAN CORPUSCULAR HGB CONC 33.3 g/dL (33.0-37.0); RBC 3.85 Mil/uL (4.40-5.90); RED CELL DISTRIBUTION WIDTH 15.6 % (11.5-14.5); WHITE BLOOD COUNT 10.8 K/uL (4.8-10.8)
[2017-09-01 06:57] LABS: BLOOD UREA NITROGEN 19 mg/dl (9-20); CALCIUM 8.9 mg/dL (8.4-10.2); GFR AFRICAN-AMERICAN > 60; GFR NON-AFRICAN AMERICAN > 60
--- NOTE | 2017-09-01 08:09 | CP.PCM.PN ---
<Umesh Antunez - Last Filed: 09/01/17 11:56> Subjective - Date & Time of Evaluation Date of Evaluation: 09/01/17 Time of Evaluation: 11:30 - Subjective Subjective: Patient seen and examined this morning at bedside w/ Dr. Puckett. Patient is s/ p L2-L5 lumbar laminectomy and fusion POD#2. Patient reports pain at surgical site. Patient has 1 TUCKER drain containing moderate amount of sanguinous fluid. The patient tolerated physical therapy. The patient denies headaches, chest pain, SOB, abdominal pain, nausea, vomiting, or fever. Objective - Vital Signs/Intake and Output Vital Signs (last 24 hours): Temp Pulse Resp BP Pulse Ox 98.2 F 72 18 144/85 98 09/01/17 07:35 09/01/17 07:35 09/01/17 07:35 09/01/17 07:35 09/01/17 07:35 Intake and Output: 09/01/17 09/01/17 06:59 18:59 Intake Total 240 Output Total 80 Balance 160 - Medications Medications: Current Medications Acetaminophen (Tylenol 325mg Tab) 650 mg PO Q6 PRN PRN Reason: Pain, Mild (1-3) Dexamethasone (Decadron Inj) 2 mg IVP Q12 [facility] Last Admin: 08/31/17 22:49 Dose: 2 mg Docusate Sodium (Colace) 100 mg PO BID [facility] Last Admin: 08/31/17 22:49 Dose: 100 mg Hydrochlorothiazide (Microzide) 12.5 mg PO DAILY [facility] Last Admin: 08/31/17 09:48 Dose: 12.5 mg Lactated Ringer's (Lactated Ringer's) 1,000 mls @ 125 mls/hr IV .Q8H [facility] Last Admin: 08/31/17 11:18 Dose: Not Given Ibuprofen (Motrin Tab) 600 mg PO Q6H PRN PRN Reason: Pain, moderate (4-7) Morphine Sulfate (Morphine) 2 mg IVP Q4 PRN PRN Reason: Pain, severe (8-10) Ondansetron HCl (Zofran Inj) 4 mg IVP ONCE PRN PRN Reason: Nausea/Vomiting Last Admin: 08/30/17 15:39 Dose: 4 mg Oxycodone/Acetaminophen (Percocet 5/325 Mg Tab) 1 tab PO Q4 PRN PRN Reason: Pain, severe (8-10) Stop: 09/01/17 12:27 Last Admin: 08/31/17 13:47 Dose: 1 tab Oxycodone/Acetaminophen (Percocet 5/325 Mg Tab) 2 tab PO Q4 PRN PRN Reason: Pain, severe (8-10) Stop: 09/02/17 11:37 Last Admin: 09/01/17 00:42 Dose: 2 tab Valsartan (Diovan) 160 mg PO DAILY [facility] Last Admin: 08/31/17 09:48 Dose: 160 mg - Labs Labs: 09/01/17 06:00 09/01/17 06:00 PT 11.6 Seconds (9.8-13.1) 08/29/17 10:10 INR 1.0 (0.9-1.2) 08/29/17 10:10 APTT 30.3 Seconds (25.6-37.1) 08/29/17 10:10 - Constitutional Appears: Non-toxic, No Acute Distress - Head Exam Head Exam: ATRAUMATIC, NORMAL INSPECTION, NORMOCEPHALIC - Eye Exam Eye Exam: Normal appearance - ENT Exam ENT Exam: Mucous Membranes Moist - Neck Exam Neck Exam: Full ROM. absent: Tenderness - Respiratory Exam Respiratory Exam: absent: Accessory Muscle Use, Decreased Breath Sounds, Rales, Rhonchi, Wheezes, Respiratory Distress - Cardiovascular Exam Cardiovascular Exam: REGULAR RHYTHM. absent: Tachycardia - GI/Abdominal Exam GI & Abdominal Exam: Soft, Normal Bowel Sounds. absent: Distended, Tenderness - Extremities Exam Extremities Exam: absent: Calf Tenderness, Pedal Edema, Tenderness - Back Exam Additional comments: dressing c/d/i, 1 TUCKER drain containing moderate amount of sanguinous fluid, 100 cc - Neurological Exam Neurological Exam: Alert, Awake, Normal Gait, Oriented x3 - Skin Skin Exam: Dry, Intact, Normal Color, Warm Assessment and Plan (1) Chronic back pain Status: Acute (2) Intractable back pain Status: Acute (3) HTN (hypertension) Status: Chronic - Assessment and Plan (Free Text) Plan: c/w present management, s/p lumbar laminectomy and fusion L2-L3, L3-L4, L4-L5 POD#2 c/w home medications for BP control afebrile, non-tachycardic, normotensive neurosurgery recommendations appreciated CBC: 10.8>11.0/33.0<299 BMP: 143/3.9, 102/28, 19/1.0, glucose 151 decadron taper, 1 mg IV Q12h pain management: tylenol 650 mg PO Q6h prn, motrin 600 mg PO Q6h prn, percocet 1 tab PO Q4h prn, percocet 2 tab PO Q4h prn, morphine 2mg IV Q4h prn colace 100 mg PO BID prophylactic measures: DVT SCDs encourage incentive spirometer monitor for acute changes stable for transfer to [facility] <Tejinder Puckett - Last Filed: 09/03/17 17:50> Objective - Vital Signs/Intake and Output Vital Signs (last 24 hours): Temp Pulse Resp BP Pulse Ox 98.4 F 66 20 109/72 97 09/03/17 15:46 09/03/17 15:46 09/03/17 15:46 09/03/17 15:46 09/03/17 15:46 Intake and Output: 09/03/17 09/03/17 06:59 18:59 Output Total 680 Balance -680 - Medications Medications: Current Medications Acetaminophen (Tylenol 325mg Tab) 650 mg PO Q6 PRN PRN Reason: Pain, Mild (1-3) Bisacodyl (Dulcolax) 5 mg PO HS PRN PRN Reason: Constipation Dexamethasone (Decadron Inj) 1 mg IVP Q12 [facility] Last Admin: 09/03/17 08:47 Dose: 1 mg Docusate Sodium (Colace) 100 mg PO BID [facility] Last Admin: 09/03/17 16:54 Dose: 100 mg Hydrochlorothiazide (Microzide) 12.5 mg PO DAILY [facility] Last Admin: 09/03/17 08:48 Dose: 12.5 mg Ibuprofen (Motrin Tab) 600 mg PO Q6H PRN PRN Reason: Pain, moderate (4-7) Last Admin: 09/01/17 09:43 Dose: 600 mg Ondansetron HCl (Zofran Inj) 4 mg IVP ONCE PRN PRN Reason: Nausea/Vomiting Last Admin: 08/30/17 15:39 Dose: 4 mg Oxycodone/Acetaminophen (Percocet 5/325 Mg Tab) 2 tab PO Q4 PRN PRN Reason: Pain, severe (8-10) Stop: 09/05/17 18:25 Last Admin: 09/03/17 12:49 Dose: 2 tab Valsartan (Diovan) 160 mg PO DAILY [facility] Last Admin: 09/03/17 08:48 Dose: 160 mg - Labs Labs: 09/01/17 06:00 09/01/17 06:00 PT 11.6 Seconds (9.8-13.1) 08/29/17 10:10 INR 1.0 (0.9-1.2) 08/29/17 10:10 APTT 30.3 Seconds (25.6-37.1) 08/29/17 10:10 Assessment and Plan - Assessment and Plan (Free Text) Plan: I was present during evaluation and discussed with Dr Antunez re plans of care and mgt. Tejinder Puckett M.D.
[2017-09-01] MEDS: Dexamethasone 4 mg/1 ml IVP SCH ×2 (09:39→21:55)
[2017-09-01] MEDS ORDERED: Bisacodyl 5mg EC Tab PO PRN (12:49)
--- NOTE | 2017-09-01 12:52 | CP.PCM.PN ---
Subjective - Date & Time of Evaluation Date of Evaluation: 09/01/17 Time of Evaluation: 12:52 - Subjective Subjective: f/u Dr. peralta Patient out of bed in chair, has walked around bonds several times today and tolerated stairs. Denies CP/SOB/dizziness. C/o constipation Objective - Vital Signs/Intake and Output Vital Signs (last 24 hours): Temp Pulse Resp BP Pulse Ox 98.3 F 74 18 131/76 97 09/01/17 12:17 09/01/17 12:17 09/01/17 12:17 09/01/17 12:17 09/01/17 12:17 Intake and Output: 09/01/17 09/01/17 06:59 18:59 Intake Total 240 Output Total 80 Balance 160 - Medications Medications: Current Medications Acetaminophen (Tylenol 325mg Tab) 650 mg PO Q6 PRN PRN Reason: Pain, Mild (1-3) Bisacodyl (Dulcolax) 5 mg PO HS PRN PRN Reason: Constipation Dexamethasone (Decadron Inj) 1 mg IVP Q12 [facility] Docusate Sodium (Colace) 100 mg PO BID [facility] Last Admin: 09/01/17 09:40 Dose: 100 mg Hydrochlorothiazide (Microzide) 12.5 mg PO DAILY [facility] Last Admin: 09/01/17 09:40 Dose: 12.5 mg Lactated Ringer's (Lactated Ringer's) 1,000 mls @ 125 mls/hr IV .Q8H [facility] Last Admin: 08/31/17 11:18 Dose: Not Given Ibuprofen (Motrin Tab) 600 mg PO Q6H PRN PRN Reason: Pain, moderate (4-7) Last Admin: 09/01/17 09:43 Dose: 600 mg Morphine Sulfate (Morphine) 2 mg IVP Q4 PRN PRN Reason: Pain, severe (8-10) Ondansetron HCl (Zofran Inj) 4 mg IVP ONCE PRN PRN Reason: Nausea/Vomiting Last Admin: 08/30/17 15:39 Dose: 4 mg Oxycodone/Acetaminophen (Percocet 5/325 Mg Tab) 2 tab PO Q4 PRN PRN Reason: Pain, severe (8-10) Stop: 09/02/17 11:37 Last Admin: 09/01/17 00:42 Dose: 2 tab Valsartan (Diovan) 160 mg PO DAILY [facility] Last Admin: 09/01/17 09:40 Dose: 160 mg - Labs Labs: 09/01/17 06:00 09/01/17 06:00 PT 11.6 Seconds (9.8-13.1) 08/29/17 10:10 INR 1.0 (0.9-1.2) 08/29/17 10:10 APTT 30.3 Seconds (25.6-37.1) 08/29/17 10:10 - Back Exam Additional comments: Dressings with scant sangiunous drainage surrounding drain site. TUCKER drains intact with 80cc sangiunous drainage yesterday, noted approx 30cc in drain at this time + tenderness. abd binder intact sensation intact SP/DP/TN motor intact EHL/FHL/TA/G pedal pulses intact Assessment and Plan (1) Lumbar spondylosis Assessment & Plan: POD#2 s/p L2-5 laminotomy with fusion -pain control -monitor drain output at this time -PT/OT WBAT -guerline -d/c planning -d/w Dr. Peralta, agrees with above dulcolax Status: Acute
[2017-09-02] MEDS: Oxycodone/Acetaminophen 5/325 mg Tab PO PRN ×2 (08:41→20:51)
[2017-09-02] MEDS: Dexamethasone 4 mg/1 ml IVP SCH ×2 (08:42→21:05)
[2017-09-02] MEDS: Lactated Ringer's 1,000 ML IV SCH (20:59)
[2017-09-03] MEDS: Lactated Ringer's 1,000 ML IV SCH ×2 (07:23→12:50)
[2017-09-03] MEDS: Dexamethasone 4 mg/1 ml IVP SCH ×2 (08:47→21:34)
[2017-09-03] MEDS: Oxycodone/Acetaminophen 5/325 mg Tab PO PRN (12:49)
--- NOTE | 2017-09-03 17:53 | CP.PCM.PN ---
Subjective - Date & Time of Evaluation Date of Evaluation: 09/02/17 Time of Evaluation: 10:00 - Subjective Subjective: Patient is doing well Has minimal pain on op site Has no fever CBC and CMP are all normal Noted significant drainage. Objective - Vital Signs/Intake and Output Vital Signs (last 24 hours): Temp Pulse Resp BP Pulse Ox 98.4 F 66 20 109/72 97 09/03/17 15:46 09/03/17 15:46 09/03/17 15:46 09/03/17 15:46 09/03/17 15:46 Intake and Output: 09/03/17 09/03/17 06:59 18:59 Output Total 680 Balance -680 - Medications Medications: Current Medications Acetaminophen (Tylenol 325mg Tab) 650 mg PO Q6 PRN PRN Reason: Pain, Mild (1-3) Bisacodyl (Dulcolax) 5 mg PO HS PRN PRN Reason: Constipation Dexamethasone (Decadron Inj) 1 mg IVP Q12 [facility] Last Admin: 09/03/17 08:47 Dose: 1 mg Docusate Sodium (Colace) 100 mg PO BID [facility] Last Admin: 09/03/17 16:54 Dose: 100 mg Hydrochlorothiazide (Microzide) 12.5 mg PO DAILY [facility] Last Admin: 09/03/17 08:48 Dose: 12.5 mg Ibuprofen (Motrin Tab) 600 mg PO Q6H PRN PRN Reason: Pain, moderate (4-7) Last Admin: 09/01/17 09:43 Dose: 600 mg Ondansetron HCl (Zofran Inj) 4 mg IVP ONCE PRN PRN Reason: Nausea/Vomiting Last Admin: 08/30/17 15:39 Dose: 4 mg Oxycodone/Acetaminophen (Percocet 5/325 Mg Tab) 2 tab PO Q4 PRN PRN Reason: Pain, severe (8-10) Stop: 09/05/17 18:25 Last Admin: 09/03/17 12:49 Dose: 2 tab Valsartan (Diovan) 160 mg PO DAILY [facility] Last Admin: 09/03/17 08:48 Dose: 160 mg - Labs Labs: 09/01/17 06:00 09/01/17 06:00 PT 11.6 Seconds (9.8-13.1) 08/29/17 10:10 INR 1.0 (0.9-1.2) 08/29/17 10:10 APTT 30.3 Seconds (25.6-37.1) 08/29/17 10:10 - Head Exam Head Exam: NORMAL INSPECTION - Eye Exam Eye Exam: Normal appearance - ENT Exam ENT Exam: Mucous Membranes Moist - Respiratory Exam Respiratory Exam: Clear to Ausculation Bilateral - Cardiovascular Exam Cardiovascular Exam: REGULAR RHYTHM - GI/Abdominal Exam GI & Abdominal Exam: Normal Bowel Sounds - Neurological Exam Neurological Exam: Awake, Oriented x3 Assessment and Plan (1) S/P lumbar laminectomy Status: Acute (2) Gait difficulty Status: Acute (3) Lumbar spondylosis Status: Acute (4) Hypertension Status: Acute - Assessment and Plan (Free Text) Plan: Cont pain meds Cont tx Cont PT monitor drain.
--- NOTE | 2017-09-03 17:56 | CP.PCM.PN ---
Subjective - Date & Time of Evaluation Date of Evaluation: 09/03/17 Time of Evaluation: 12:00 - Subjective Subjective: Patient remains stable However still with significant drainage Has no fever Latest labs are normal Objective - Vital Signs/Intake and Output Vital Signs (last 24 hours): Temp Pulse Resp BP Pulse Ox 98.4 F 66 20 109/72 97 09/03/17 15:46 09/03/17 15:46 09/03/17 15:46 09/03/17 15:46 09/03/17 15:46 Intake and Output: 09/03/17 09/03/17 06:59 18:59 Output Total 680 Balance -680 - Medications Medications: Current Medications Acetaminophen (Tylenol 325mg Tab) 650 mg PO Q6 PRN PRN Reason: Pain, Mild (1-3) Bisacodyl (Dulcolax) 5 mg PO HS PRN PRN Reason: Constipation Dexamethasone (Decadron Inj) 1 mg IVP Q12 [facility] Last Admin: 09/03/17 08:47 Dose: 1 mg Docusate Sodium (Colace) 100 mg PO BID [facility] Last Admin: 09/03/17 16:54 Dose: 100 mg Hydrochlorothiazide (Microzide) 12.5 mg PO DAILY [facility] Last Admin: 09/03/17 08:48 Dose: 12.5 mg Ibuprofen (Motrin Tab) 600 mg PO Q6H PRN PRN Reason: Pain, moderate (4-7) Last Admin: 09/01/17 09:43 Dose: 600 mg Ondansetron HCl (Zofran Inj) 4 mg IVP ONCE PRN PRN Reason: Nausea/Vomiting Last Admin: 08/30/17 15:39 Dose: 4 mg Oxycodone/Acetaminophen (Percocet 5/325 Mg Tab) 2 tab PO Q4 PRN PRN Reason: Pain, severe (8-10) Stop: 09/05/17 18:25 Last Admin: 09/03/17 12:49 Dose: 2 tab Valsartan (Diovan) 160 mg PO DAILY [facility] Last Admin: 09/03/17 08:48 Dose: 160 mg - Labs Labs: 09/01/17 06:00 09/01/17 06:00 PT 11.6 Seconds (9.8-13.1) 08/29/17 10:10 INR 1.0 (0.9-1.2) 08/29/17 10:10 APTT 30.3 Seconds (25.6-37.1) 08/29/17 10:10 - Head Exam Head Exam: NORMAL INSPECTION - Eye Exam Eye Exam: Normal appearance - Respiratory Exam Respiratory Exam: Clear to Ausculation Bilateral - Cardiovascular Exam Cardiovascular Exam: REGULAR RHYTHM - GI/Abdominal Exam GI & Abdominal Exam: Normal Bowel Sounds - Neurological Exam Neurological Exam: Awake - Psychiatric Exam Psychiatric exam: Normal Mood Assessment and Plan (1) S/P lumbar laminectomy Status: Acute (2) Gait difficulty Status: Acute (3) Lumbar spondylosis Status: Acute (4) Hypertension Status: Acute - Assessment and Plan (Free Text) Plan: Cont meds Cont pain meds Phys therapy monitor drainage possible dc in am.
[2017-09-04 00:20] VITALS: RESP 19; TEMP 98
[2017-09-04] MEDS: Oxycodone/Acetaminophen 5/325 mg Tab PO PRN ×2 (00:55→10:06)
[2017-09-04 07:42] VITALS: BP 133/87; PULSE 63; O2SAT 99
[2017-09-04] MEDS: Dexamethasone 4 mg/1 ml IVP SCH (08:30)
--- NOTE | 2017-09-04 09:56 | CP.PCM.PN ---
Subjective - Date & Time of Evaluation Date of Evaluation: 09/04/17 Time of Evaluation: 09:00 - Subjective Subjective: Patient seen and examined OOB to chair. Pain well controlled. No new complaints. Objective - Vital Signs/Intake and Output Vital Signs (last 24 hours): Temp Pulse Resp BP Pulse Ox 98.0 F 63 19 133/87 99 09/04/17 07:41 09/04/17 07:41 09/04/17 07:41 09/04/17 07:41 09/04/17 07:41 Intake and Output: 09/04/17 09/04/17 06:59 18:59 Output Total 30 Balance -30 - Medications Medications: Current Medications Acetaminophen (Tylenol 325mg Tab) 650 mg PO Q6 PRN PRN Reason: Pain, Mild (1-3) Bisacodyl (Dulcolax) 5 mg PO HS PRN PRN Reason: Constipation Dexamethasone (Decadron Inj) 1 mg IVP Q12 [facility] Last Admin: 09/04/17 08:30 Dose: 1 mg Docusate Sodium (Colace) 100 mg PO BID [facility] Last Admin: 09/04/17 08:29 Dose: 100 mg Hydrochlorothiazide (Microzide) 12.5 mg PO DAILY [facility] Last Admin: 09/04/17 08:30 Dose: 12.5 mg Ibuprofen (Motrin Tab) 600 mg PO Q6H PRN PRN Reason: Pain, moderate (4-7) Last Admin: 09/01/17 09:43 Dose: 600 mg Ondansetron HCl (Zofran Inj) 4 mg IVP ONCE PRN PRN Reason: Nausea/Vomiting Last Admin: 08/30/17 15:39 Dose: 4 mg Oxycodone/Acetaminophen (Percocet 5/325 Mg Tab) 2 tab PO Q4 PRN PRN Reason: Pain, severe (8-10) Stop: 09/05/17 18:25 Last Admin: 09/04/17 00:55 Dose: 2 tab Valsartan (Diovan) 160 mg PO DAILY [facility] Last Admin: 09/04/17 08:30 Dose: 160 mg - Labs Labs: 09/01/17 06:00 09/01/17 06:00 PT 11.6 Seconds (9.8-13.1) 08/29/17 10:10 INR 1.0 (0.9-1.2) 08/29/17 10:10 APTT 30.3 Seconds (25.6-37.1) 08/29/17 10:10 - Back Exam Additional comments: lower back: dressings with dry blood, TUCKER drain intact with mild bloody drainage , dressings removed revealing intact wound with tg intact sensation intact SP/DP/TN motor intact b/l LE distal pulses intact Assessment and Plan (1) Intractable back pain Assessment & Plan: POD#5 s/p L2-5 laminotomy with fusion -pain control -drain removed, dressings changed -PT/OT WBAT -keep abd binder on -clear to discharge from neurosurg standpoint -f/u with in office 7-10 from d/c -above d/w Dr. Lopez in agreement Status: Acute
== END 2017-09-04 15:40 | disposition home health service (06) | DRG 756 ==
LOC: H.ER 09:21 → H.ERHOLD 10:17 → H.MEDSURG1 15:45 → H.TEL 08-30 14:18 → H.MEDSURG1 09-02 18:29
PROVIDERS: ADMIT Family Medicine; ATTEND Family Medicine
PROC: 00NY0ZZ Release Lumbar Spinal Cord, Open Approach (ICD-10-PCS; 2017-08-30)
PROC: 0SG10J1 Fusion of 2 or more Lumbar Vertebral Joints with Synthetic Substitute, Posterior Approach, Posterior Column, Open Approach (ICD-10-PCS; principal; 2017-08-30 09:45)
DX: M51.26 Other intervertebral disc displacement, lumbar region (principal); M47.816 Spondylosis without myelopathy or radiculopathy, lumbar region; G89.29 Other chronic pain; I10 Essential (primary) hypertension; K59.00 Constipation, unspecified; M19.90 Unspecified osteoarthritis, unspecified site; F17.210 Nicotine dependence, cigarettes, uncomplicated; Z85.46 Personal history of malignant neoplasm of prostate; Z87.440 Personal history of urinary (tract) infections